=== PATIENT | male | born 1940 | race Caucasian/White ===

== ENCOUNTER 2017-12-03 16:40 | Emergency (ER) | payer SELFPAY ==
[2017-12-03] MEDS ORDERED: Ketorolac 30 MG/ML SDV IM ONE (17:13)
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
[2017-12-03] MEDS ORDERED: Ondansetron 4 MG/2 ML SDV IVPUSH ONE (20:02)
[2017-12-03] MEDS ORDERED: Morphine 2 MG/ML Syringe IVPUSH ONE ×2 (20:02→20:46)
--- NOTE | 2017-12-04 09:25 | CR ---
Lumbar Spine 2 or 3V CLINICAL HISTORY: Trauma FINDINGS: There is moderate wedge compression deformity of L1. There is mild wedge compression of T12 . Chronology is uncertain. There is disc space narrowing at L5-S1.There are atherosclerotic changes in the aorta. IMPRESSION: Moderate wedge compression of L1, age unknown Minimal compression of T12 age unknown
--- NOTE | 2017-12-04 09:28 | CR ---
Sacrum Coccyx Min 2V CLINICAL HISTORY: Pain, trauma FINDINGS: No sacral or coccygeal fracture is seen. If clinical symptomatology persists. Repeat exam i s recommended
== END 2017-12-03 21:06 | disposition other institution (70) ==
LOC: JP.ED 16:40
DX: S32.001A Stable burst fracture of unspecified lumbar vertebra, initial encounter for closed fracture (principal); I10 Essential (primary) hypertension; V48.5XXA Car driver injured in noncollision transport accident in traffic accident, initial encounter
CPT/HCPCS: 72100; 72125; 72131; 72220; 96372; 96374; 96375; 99285; J1885; J2270; J2405

== ENCOUNTER 2020-12-01 23:10 | Emergency (ER) | payer MEDICARE, OTHER ==
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
[2020-12-01] MEDS ORDERED: Midazolam 1 MG/ML 5 ML SDV IVPUSH ONE (23:35)
--- NOTE | 2020-12-02 11:15 | CR ---
Ankle Min 3V Lt CLINICAL HISTORY: Injury FINDINGS: The soft tissues are swollen. There is a displaced fracture of the distal fibula. There is also fracture of the medial malleolus and posterior tibial plafond there is lateral subluxation of the talus. Small ossific density just medial to the malleolus may represent some ligamentous avulsion. Impression: Trimalleolar fracture and dislocation.
--- NOTE | 2020-12-02 11:17 | CR ---
Ankle 2V Lt CLINICAL HISTORY: Postreduction FINDINGS: Patient has fractures of the distal fibula and tibia. There is been reduction of the tibiotalar dislocation. Splint is in place IMPRESSION: Status post reduction of trimalleolar fracture in splint
== END 2020-12-02 02:05 | disposition home or self-care (01) ==
LOC: JP.ED 23:10
DX: S82.842A Displaced bimalleolar fracture of left lower leg, initial encounter for closed fracture (principal); I10 Essential (primary) hypertension; Z95.5 Presence of coronary angioplasty implant and graft; Z79.01 Long term (current) use of anticoagulants; W18.40XA Slipping, tripping and stumbling without falling, unspecified, initial encounter
CPT/HCPCS: 27810; 73600; 73610; 99284; J2250; 27808; 99283

== ENCOUNTER 2020-12-07 08:32 | Day surgery (SDC) | payer MEDICARE, OTHER ==
[~2020-12-07 08:32] MED LIST: Bupivacaine 0.5% 30 ML SDV ONE
[2020-12-07] MEDS ORDERED: Ondansetron 4 MG/2 ML SDV ONE (09:04)
[2020-12-07] MEDS ORDERED: fentaNYL 250 MCG/5 ML SDV ONE ×2 (09:04→11:11)
[2020-12-07] MEDS ORDERED: Dexamethasone 4 MG/ML SDV ONE (09:04)
[2020-12-07] MEDS ORDERED: Neostigmine Methylsulfate 1 MG/ML 5 ML Syringe ONE (09:04)
[2020-12-07] MEDS ORDERED: Glycopyrrolate 0.2 MG/ML 5 ML MDV ONE (09:04)
[2020-12-07] MEDS ORDERED: Propofol 200 MG/20 ML SDV ONE (09:04)
[2020-12-07] MEDS ORDERED: Rocuronium 50 MG/5 ML Vial ONE (09:04)
[2020-12-07] MEDS ORDERED: Succinylcholine 200 MG/10 ML MDV ONE (09:04)
[2020-12-07] MEDS ORDERED: Nozin Nasal Sanitizer NASBOTH ONE (09:30)
[2020-12-07] MEDS ORDERED: Lactated Ringers 1,000 ML IV SCH (09:30)
[2020-12-07] MEDS ORDERED: ceFAZolin 2 GM in Premix Bag 1 BAG IV ONE (10:15)
[2020-12-07] MEDS ORDERED: Acetaminophen/HYDROcodone 325-5 MG Tab PO PRN (12:59)
--- NOTE | 2020-12-08 15:04 | PCM.EKG ---
#1 Interpretation EKG Date: 12/07/20 Time: 09:20 Rhythm: NSR Rate (Beats/Min): 65 [place]: Normal P-Wave: Present QRS: Normal ST-T: Normal QT: Normal NH/PQ Interval: First-degree AV block Comparison: NA - No Prior EKG
--- NOTE | 2020-12-14 13:26 | OR ---
DATE OF PROCEDURE: 12/07/2020 SURGEON: Michelet Helms MD PREOPERATIVE DIAGNOSIS: Bimalleolar fracture, left ankle. POSTOPERATIVE DIAGNOSIS: Bimalleolar fracture, left ankle. PROCEDURE PERFORMED: Open reduction and internal fixation, left ankle. SALESPERSON FLOWERS: SAMI Tony ANESTHESIA: General. INDICATIONS: Augusto is a 80-year-old gentleman who sustained a fall [place] resulting in a laterally displaced bimalleolar ankle fracture. He was reduced in the emergency room. Date of injury on 12/01/2020. He is taken to the operating room today for open reduction and internal fixation. Risks, benefits, and potential complications were discussed. DESCRIPTION OF PROCEDURE: After adequate anesthesia was obtained, the patient was placed supine with a tourniquet about the left upper thigh. The left leg was prepped and draped in a sterile fashion, and a bump was placed under the left hip. A longitudinal incision was made over the lateral aspect of the ankle and carried down through the subcutaneous tissues to the fracture. The fracture was readily identified. Soft tissues were cleared along with small fracture hematoma, and the fracture was then reduced and held in position with a bone- holding clamp. A lag screw was placed from anterior to posterior, over-drilling the anterior cortex and compressing the fracture. A neutralization plate was then placed using Synthes precontoured plate with 3.5 cortical screws proximally and locking screws distally. Final position was confirmed using fluoroscopy. Attention was turned to the medial malleolus. A curvilinear incision was made over the tip of the malleolus and carried down through the subcutaneous tissues, and the fracture was identified. Periosteum was cleared from the fracture site. Fracture hematoma was removed. The fracture was reduced under direct visualization and held with a tenaculum clamp. A drill hole was made and position confirmed using fluoroscopy. A partially- threaded cancellous screw was then placed in compression. Final position was confirmed. The wounds were then irrigated. The medial wound was closed using a 0 Vicryl placed in a figure-of- eight fashion through the periosteum proximally across the fracture site and through the deltoid ligament, providing a tension band-type augmentation of the screw fixation and securing the periosteum in place. The deep tissue was closed with 0 Vicryl in interrupted fashion followed by 2-0 Vicryl and a running 3-0 Monocryl. The lateral incision was irrigated. The deep fascia was closed with 0 Vicryl. Skin was closed with 2-0 Vicryl and a running 3-0 Monocryl. Steri-Strips were applied. The wounds were infiltrated with 0.5% Marcaine. A sterile dressing was then placed with a well-padded AO plaster splint with the foot in neutral position. The patient tolerated the procedure well. There were no complications. He was taken from the operating room in stable condition. Michelet Helms MD /[id number] MTDD
== END 2020-12-07 13:58 | disposition home or self-care (01) ==
LOC: JP.SDS 08:32
PROVIDERS: ATTEND Specialist
DX: S82.842A Displaced bimalleolar fracture of left lower leg, initial encounter for closed fracture (principal); I25.10 Atherosclerotic heart disease of native coronary artery without angina pectoris; I10 Essential (primary) hypertension; I48.91 Unspecified atrial fibrillation; Z98.890 Other specified postprocedural states
CPT/HCPCS: 36415; 76000; 80053; 85027; 85610; 93005; A9270-GY; C1713; J0330; J0690; J1100; J2405; J2704; J2710; J3010; J3490; J7120

== ENCOUNTER 2023-06-01 09:10 | Emergency (ER) | payer OTHER ==
[2023-06-01 10:23] LABS: BASOPHILS ABSOLUTE AUTO 0.04 K/uL (0.00-0.10); BASOPHILS PERCENT AUTO 0.5 % (0.1-1.3); EOSINOPHILS ABSOLUTE AUTO 0.13 K/uL (0.00-0.40); EOSINOPHILS PERCENT AUTO 1.6 % (0.0-5.4); HEMATOCRIT 39.5 % (38.4-49.7); HEMOGLOBIN 13.2 g/dL (12.9-16.9); IMMATURE GRAN ABSOLUTE AUTO 0.05 K/uL (0.00-0.23); IMMATURE GRAN PERCENT AUTO 0.6 % (0.0-0.7); LYMPHOCYTES ABSOLUTE AUTO 0.72 K/uL (0.8-3.3); MEAN CORPUSCULAR HEMOGLOBIN 29.8 pg (31.6-35.5); MEAN CORPUSCULAR HGB CONC 33.4 g/dL (31.6-35.5); MEAN CORPUSCULAR VOLUME 89.2 fL (81.4-99.0); MONOCYTES ABSOLUTE AUTO 0.66 K/uL (0.20-0.90); MONOCYTES PERCENT AUTO 8.3 % (3.3-12.6); NEUTROPHILS ABSOLUTE AUTO 6.36 K/uL (1.0-7.6); PLATELET COUNT,PLT 199 K/uL (130-375); RED BLOOD CELL COUNT 4.43 M/uL (4.14-5.76)
[2023-06-01 10:56] LABS: CALCIUM 8.9 mg/dL (8.5-10.1); CREATININE 0.9 mg/dL (0.8-1.3); EST CRCL DRUG DOSING (CG) 60.18 mL/min; POTASSIUM,K 4.5 mmol/L (3.6-5.2)
[2023-06-01 11:01] LABS: ANION GAP 9.5 mmol/L (5.0-14.0)
== END 2023-06-01 11:33 | disposition home or self-care (01) ==
LOC: JP.ED 09:10
DX: J40 Bronchitis, not specified as acute or chronic (principal); I10 Essential (primary) hypertension; I25.10 Atherosclerotic heart disease of native coronary artery without angina pectoris; I25.2 Old myocardial infarction; E78.00 Pure hypercholesterolemia, unspecified; K21.9 Gastro-esophageal reflux disease without esophagitis; Z95.5 Presence of coronary angioplasty implant and graft; Z79.01 Long term (current) use of anticoagulants; Z79.899 Other long term (current) drug therapy
CPT/HCPCS: 36415; 71046; 71046-26; 80048; 83605; 83880; 84484; 85025; 99283

== ENCOUNTER 2024-08-05 07:18 | Emergency (ER) | payer OTHER ==
[2024-08-05] MEDS: Ketorolac 30 MG/ML SDV IM ONE (08:34)
== END 2024-08-05 09:36 | disposition home or self-care (01) ==
LOC: JP.ED 07:18
DX: M25.512 Pain in left shoulder (principal); I10 Essential (primary) hypertension; I25.10 Atherosclerotic heart disease of native coronary artery without angina pectoris; I25.2 Old myocardial infarction; E78.00 Pure hypercholesterolemia, unspecified; Z79.82 Long term (current) use of aspirin; Z79.899 Other long term (current) drug therapy
CPT/HCPCS: 73030; 96372; 99283; J1885